=== PATIENT | female | born 1985 | race Caucasian/White ===

== ENCOUNTER 2021-06-28 01:45 | Emergency (ER) | payer SELFPAY ==
[~2021-06-28] VITALS: Ht 157.4 cm; Wt 70.0 kg
[~2021-06-28 01:45] MED LIST: CEPH-507 PO; MUPI15CR TP; PREN1TAB71 PO; TR1O15 TP
[2021-06-28 02:35] LABS: CLARITY,URINE SL CLOUDY; COLOR,URINE DARK YELLOW; GLUCOSE, URINE (UA) NEGATIVE (NEGATIVE); KETONES,URINE TRACE (NEGATIVE); LEUKOCYTE ESTERASE ,URINE 1+ (NEGATIVE); NITRITE,URINE POSITIVE (NEGATIVE); PH,URINE 5.5 (5-9); PROTEIN,URINE 2+ (NEGATIVE)
[2021-06-28 02:42] LABS: BACTERIA,URINE LARGE /HPF; BILIRUBIN,URINE NEGATIVE (NEGATIVE); RBC,URINE 0-2 /HPF; WBC,URINE 25-50 /HPF
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
[2021-06-28 02:53] LABS: AMPHETAMINE SCREEN, URINE POSITIVE (NEGATIVE); BARBITURATE SCREEN URINE NEGATIVE (NEGATIVE); BENZODIAZEPINES SCREEN URINE NEGATIVE (NEGATIVE); CANNABINOID SCREEN, URINE POSITIVE (NEGATIVE); COCAINE SCREEN URINE NEGATIVE (NEGATIVE); METHADONE STAT NEGATIVE (NEGATIVE); METHAMPHETAMINE SCREEN URINE S POSITIVE (NEGATIVE); OPIATE SCREEN URINE NEGATIVE (NEGATIVE); OXYCODONE STAT NEGATIVE (NEGATIVE); PROPOXYPHENE STAT NEGATIVE (NEGATIVE); TRICYCLIC ANTIDEPRESSANTS SCRE NEGATIVE (NEGATIVE)
[2021-06-28] MEDS ORDERED: RX-NITROFURANTOIN 100 MG (MACROBID) CAP PPK#2 PO STA (02:57)
[2021-06-28] MEDS ORDERED: NITR-65 PO (02:59)
[2021-06-28 03:13] VITALS: BP 118/101
== END 2021-06-28 03:06 | disposition home or self-care (01) ==
LOC: EDUNIT# 01:45 → ER 01:53
DX: N39.0 Urinary tract infection, site not specified (principal); F19.90 Other psychoactive substance use, unspecified, uncomplicated
CPT/HCPCS: 80306; 81000; 84703; 87077; 87088; 99283

== ENCOUNTER 2022-07-15 17:05 | Emergency (ER) | payer SELFPAY ==
[~2022-07-15] VITALS: Ht 157 cm; Wt 72.0 kg
[~2022-07-15 17:05] MED LIST changes: +NITR-65 PO
[2022-07-15] MEDS ORDERED: ACETAMINOPHEN 500 MG TAB (TYLENOL) PO STA (17:23)
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
--- NOTE | 2022-07-15 17:51 | Diagnostic Imaging Report ---
PROCEDURE: CT head and maxillofacial without contrast. TECHNIQUE: Multiple contiguous axial images were obtained through the head and facial bones without the use of intravenous contrast. Auto Exposure Controls were utilized during the CT exam to meet ALARA standards for radiation dose reduction. INDICATION: Head and facial injuries. CT HEAD: CT images of the head were obtained. FINDINGS: Ventricles and sulci are within normal limits for size. There is no intracranial hemorrhage identified. There is no abnormal mass effect or shift of midline structures. IMPRESSION: Unremarkable CT of the head. MAXILLOFACIAL CT: There is no evidence of facial bone fracture. There is mild edema or contusion in the right periorbital region. Globes are intact. There is no evidence of retrobulbar hematoma. Mastoid air cells are also clear. Temporomandibular joints have normal appearance. IMPRESSION: Right periorbital contusion without other acute maxillofacial abnormality identified. Dictated by: Dictated on workstation # [id number]
[2022-07-15 18:13] VITALS: BP 134/87
== END 2022-07-15 18:13 | disposition home or self-care (01) ==
LOC: EDUNIT# 17:05 → ER 17:07
DX: S09.90XA Unspecified injury of head, initial encounter (principal); S00.83XA Contusion of other part of head, initial encounter; M26.609 Unspecified temporomandibular joint disorder, unspecified side; F17.200 Nicotine dependence, unspecified, uncomplicated; Y04.8XXA Assault by other bodily force, initial encounter
CPT/HCPCS: 70450; 70486